=== PATIENT | male | born 1980 | race Caucasian/White ===

== ENCOUNTER 2016-11-26 17:49 | Emergency (ER) | payer OTHER ==
[2016-11-26 18:16] VITALS: BMI 28.1
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
[2016-11-26 18:23] VITALS: TEMP 98
[2016-11-26 19:32] VITALS: BP 120/72; PULSE 88; RESP 17
[2016-11-26 21:20] VITALS: O2SAT 97
--- NOTE | 2016-11-27 08:38 | RAD ---
PROCEDURE: Cervical Spine Radiographs. HISTORY: Pain. COMPARISON: None. FINDINGS: BONES: Alignment maintained. No fracture. Dens Intact. DISC SPACES: Minimal multilevel cervical spondylosis identified. SOFT TISSUES: Normal. No prevertebral soft tissue swelling. OTHER FINDINGS: None. IMPRESSION: Minimal multilevel cervical spondylosis. No fracture or spondylolisthesis appreciated.
== END 2016-11-26 19:33 | disposition home or self-care (01) ==
LOC: SUPCPDRO 17:49 → C.ER 17:49
DX: S16.1XXA Strain of muscle, fascia and tendon at neck level, initial encounter (principal); V43.52XA Car driver injured in collision with other type car in traffic accident, initial encounter; Y92.414 Local residential or business street as the place of occurrence of the external cause